=== PATIENT | male | born 1980 | race Caucasian/White ===

== ENCOUNTER → 2016-08-11 | Outpatient (CLI) | payer BC ==
--- NOTE | 2016-08-11 19:51 | DIAGNOSTIC IMAGING REPORT ---
CHEST 2 VIEWS ROUTINE HISTORY: Productive cough. ASTHMA COMPARISON: None. FINDINGS: The heart is normal in size. No focal lung consolidations to suggest pneumonia. Incidental note is made of a right azygos fissure. No pleural effusions. No pneumothorax. IMPRESSION: No acute process. Electronically signed by: Lopez Botello M.D. 08/11/2016 7:49 PM Dictated Date/Time: 08/11/2016 7:48 PM
== END | disposition home or self-care (01) ==
LOC: C.RAD 18:49
PROVIDERS: ATTEND Family Medicine
DX: J45.21 Mild intermittent asthma with (acute) exacerbation (principal)